=== PATIENT | female | born 1975 | race Caucasian/White ===

== ENCOUNTER 2023-01-09 17:28 | Emergency (ER) | payer OTHER ==
[~2023-01-09] VITALS: Ht 165.1 cm; Wt 134.3 kg
[2023-01-09 18:30] VITALS: BP 109/71
[2023-01-09] MEDS ORDERED: [UNRECOGNIZED DRUG - CODE] PO (20:41)
[2023-01-09 20:46] VITALS: BP 109/71
--- NOTE | 2023-01-09 20:46 | NUR ---
Pt seen and evaluated by JOCELIN
--- NOTE | 2023-01-09 20:46 | NUR ---
Patient discharged with v/s stable. Written and verbal after care instructions given and explained. New rx venlafaxine. Patient verbalized understanding. Ambulatory with steady gait. All questions addressed prior to discharge. Advised to follow up with PMD.
== END 2023-01-09 20:46 | disposition home or self-care (01) ==
LOC: MED 17:28
DX: F41.0 Panic disorder [episodic paroxysmal anxiety] (principal); R06.02 Shortness of breath; R07.9 Chest pain, unspecified; Z76.0 Encounter for issue of repeat prescription; Z79.899 Other long term (current) drug therapy
CPT/HCPCS: 99281